=== PATIENT | female | born 1955 | race Caucasian/White ===

== ENCOUNTER → 2020-12-31 07:21 | Outpatient (REF) | payer MEDICARE, OTHER, SELFPAY ==
--- NOTE | 2020-12-31 07:29 | CA_ITS ---
Transthoracic Echocardiogram Patient (Last, First, Middle): Essence Henning, Gender: Female Date of : 1955 Age: 65 Procedure Date: 12/31/2020 Procedure Type: Transthoracic Echocardiogram Location: OP Height: 165.1 cm Weight: 65.77 kg BSA: 1.73 m2 Heart Rate: bpm BP: 130 / 80 mmHg Shredding Machine Operator: KYLAH Referring MD: Rhys Ventura MD Symptoms: Ebstein anomaly, myxomatous mitral valve, pfo Study Quality: Good ECG Rhythm: Sinus Conclusions: - The left ventricular systolic function is normal. The calculated ejection fraction is 62% by biplane method. - There is mild tricuspid valve regurgitation. - Contrast study for right to left shunting is severely positive. (rest and valsalva). Findings Left Ventricle Normal left ventricular cavity size. There is normal left ventricular wall thickness. The left ventricular systolic function is normal. The calculated ejection fraction is 62% by biplane method. There is no evidence of regional wall motion abnormalities. Diastolic function is normal for age. Right Ventricle Normal right ventricular cavity size and systolic function. Atria Both atria are normal in size. There is a mobile atrial septum noted. Contrast study for right to left shunting is severely positive. (rest and valsalva). Aortic Valve There is a normal trileaflet aortic valve. There is no aortic valve stenosis. There is no aortic valve regurgitation. Mitral Valve There is mild anterior mitral leaflet thickening. There is trace mitral valve regurgitation. There is no mitral valve stenosis. Pulmonic Valve The pulmonic valve was not well visualized. Tricuspid Valve There is mild tricuspid valve regurgitation. The pulmonary artery systolic pressure is normal. Mild thickening of tricuspid leaflets. Great Vessels The aortic annulus, sinuses of valsalva, and asc aorta are normal in size. Venous The inferior vena cava is normal in size and collapses greater than 50% with inspiration. Pericardium/Pleural There is no evidence of pericardial effusion. Prior Study Comparison No significant change compared to prior study dated: 12/25/2018. Measurements 2D Linear Measurements IVSd: 0.81 0.6-0.9/0.6-1.0 cm LVIDd: 4.19 3.9-5.3/4.2-5.9 cm LVIDd Index: 2.42 2.4-3.2/2.2-3.1 cm/m2 LVIDs: 3.01 2.0-3.6 cm LVPWd: 0.77 0.7-1.1 cm Ao Root: 2.80 2.1-3.5 cm LA Diam: 3.00 2.7-3.8/3.0-4.0 cm LAIDs Index: 1.73 1.5-2.3 cm/m2 LV Mass: 123.28 67-162/88-224 g LV Mass Index: 71.26 43-95/49-115 g/m2 LVOT Diam: 2.10 3.0+(-)1.3 cm 2D Systolic Function EF 4C: 62.70 >55% EF 2C: 63.30 >55% EF BiP: 61.60 >55% Mitral Valve MV Pk E: 0.73 MV PK A: 1.02 MV Decel Time: 219.00 E/A: 0.70 E'Lateral: 8.38 E'Medial: 6.20 E/E' Med: 11.70 E/E' Lat: 8.70 PHT: 64.00 MVA PHT: 3.44 Decel Thayer: 3.32 Aortic Valve AoV Pk Dereck: 1.33 AoV Mn Dereck: 0.90 AoV VTI: 0.29 AoV Pk Grad: 7.00 Aov Mn Grad: 4.00 VIKI Cont.VTI: 2.56 LVOT LVOT Pk Dereck: 0.95 LVOT Mn Dereck: 0.63 LVOT VTI: 0.21 LVOT Pk Grad: 4.00 LVOT Mn Grad: 2.00 LVOT Diam: 2.10 LVOT Area: 3.46 Diastolic Function MV Pk E: 0.73 MV Pk A: 1.02 E/A: 0.70 E'Medial: 6.20 E/E' Med: 11.70 E' Laterial: 8.38 E/E' Lat: 8.70 Right Ventricle TAPSE (mm): 2.44 TVS' Dereck: 13.60 Tricuspid Valve TR Pk Dereck: 2.58 TR Pk Grad: 27.00 RA Press: 3.00 RVSP: 30.00 Great Vessels Aorta Ao Root-2D: 2.80 2.0-3.7 cm Ao Asc: 3.00 2.1-3.4 cm Ao Arch: 3.20 Updated in Other Vendor System with Status of Final Rhys Ventura MD electronically signed on 01/02/2021 2:55:40 PM with status of Final
== END ==
LOC: HO.CARD 07:21
PROVIDERS: PCP Family Medicine; Visit Provider Internal Medicine
DX: Q22.5 Ebstein's anomaly (principal); I34.1 Nonrheumatic mitral (valve) prolapse; Q22.1 Congenital pulmonary valve stenosis
CPT/HCPCS: 93306

== ENCOUNTER → 2021-01-07 12:11 | Outpatient (BNVA) | payer MEDICARE, OTHER, SELFPAY | PROVIDERS: PCP Family Medicine; Visit Provider Internal Medicine | DX: I36.1 Nonrheumatic tricuspid (valve) insufficiency (principal); Q21.1 Atrial septal defect; G47.33 Obstructive sleep apnea (adult) (pediatric); Z99.89 Dependence on other enabling machines and devices | CPT/HCPCS: 93005; 99212 ==

== ENCOUNTER 2024-01-08 13:59 | Outpatient (AMB) | payer MEDICARE, OTHER, SELFPAY ==
--- NOTE | 2024-01-08 14:32 | MHC.OFFVIS ---
Vital Signs 01/08/24 14:33 Height 5 ft 5 in Weight 149 lb 14.629 oz BMI 24.9 BP 120/62 Blood Pressure Location Lt brachial Position Sitting Pulse 80 Pulse Source Monitor Intake Visit Reasons: 3 years f/u w/ekg dx: pfo Allergies No Known Allergies [No Known Allergies*] Allergy (Verified 01/07/21 12:34) Medication List - Last Reconciled 01/08/24 by Rhys Ventura MD aspirin (Adult Aspirin Regimen) 81 mg PO DAILY calcium carbonate (Calcium 600) 600 mg PO DAILY escitalopram oxalate 5 mg PO DAILY levothyroxine 50 mcg PO DAILY multivitamin 1 tab PO DAILY vitamin B complex (B Complex-Vitamin B12 tablet) 1 tab PO DAILY vitamins A,C,B-bqij-hdkvnb 4,296 mcg-226 mg-90 mg (PreserVision AREDS) 1 cap PO BID HPI Comments Details: Essence returns for follow-up. In the past, she underwent an echocardiogram at [facility] for evaluation of dizziness. That had reported Ebstein's anomaly and tricuspid regurgitation. Since that time, no further episodes. Previously, she had reported episodes of chest pressure, but only at nighttime when lying down. She is again complaining of the same thing for the last few weeks. However, during the daytime when she is active she is not noticing that. Hence not clear. [facility] Surgical History (Updated 01/07/21 @ 12:45 by EDUARDO Bundy) History of partial thyroidectomy Family History (Updated 01/07/21 @ 12:46 by EDUARDO Bundy) Father No problems noted. Mother Dementia Arthritis Social History (Updated 01/07/21 @ 12:44 by EDUARDO Bundy) Alcohol intake: current Alcohol intake frequency: holidays/special occasions only Patient Tobacco Use Status: Never used Tobacco Review of Systems Const Denies weakness ENT Denies dizziness Card Reports chest pain, Denies chest pain with activity, Denies syncope, Denies rapid heart rate, Denies pedal edema, Denies edema, Denies leg edema, Denies lightheadedness, Denies palpitations, Denies dyspnea, Denies dyspnea on exertion and Denies orthopnea Resp Denies cough, Denies dyspnea and Denies dyspnea on exertion GI Denies hematochezia and Denies change in stool character Musc Denies abnormal gait, Denies muscle cramps, Denies muscle weakness, Denies numbness, Denies radiating pain into limb and Denies tingling Neuro Denies abnormal gait, Denies dizziness, Denies syncope, Denies numbness, Denies tingling and Denies weakness Endo Denies palpitations Physical Exam Vital Signs: Last Vital Signs Pulse 80 01/08/24 14:33 BP 120/62 01/08/24 14:33 BMI result Body Mass Index 24.9 Const General: comfortable and no acute distress Orientation/consciousness: patient oriented x3 HEENT Other: Unremarkable Head: Yes normal to inspection Neck Neck: Yes normal visual inspection Chest Chest palpation & inspection: normal inspection of the chest Resp Auscultation: clear to auscultation bilaterally Cardio Palpation: normal PMI Heart sounds: S1 normal heart sound present, S2 normal heart sound present, no gallops, no murmurs and no rubs GI Palpation (GI): Soft to palpation Back/Spine/Pelvis Other: unremarkable Skin General skin exam: no rashes or lesions noted Neuro General: patient oriented x3 Extrem General: Yes normal to inspection Psych Mental Status: mental status grossly normal Office Procedures EKG Details: EKG with underlying sinus rhythm at 80/Min; no significant ST-T changes and otherwise unremarkable[place]. [address]-[id number], Complete Assessment & Plan Assessment & Plan (1) Nonrheumatic tricuspid (valve) insufficiency: Code(s): I36.1 - Nonrheumatic tricuspid (valve) insufficiency Category: Medical (2) PFO (patent foramen ovale): Code(s): Q21.1 - Atrial septal defect Category: Medical (3) MIGUEL on CPAP: Code(s): G47.33 - Obstructive sleep apnea (adult) (pediatric); Z99.89 - Dependence on other enabling machines and devices Category: Medical (4) Precordial chest pain: Code(s): R07.2 - Precordial pain Category: Medical Plan Initial echocardiogram had reported apical displacement of the septal leaflet of tricuspid leaflet, consistent with mild Ebstein's anomaly. However, repeat studies are not to convincing for the same. There is only mild tricuspid regurgitation in the last study. She does have a mobile atrial septum and evidence of patent foramen ovale. She remains on low-dose aspirin for that. In the past, exercise stress test was unremarkable. As she is again complaining of the chest pressure on lying down, we can redo stress testing. However, suspect it may not be cardiac. Orders: Orders CA echo transthoracic complete Today I36.1 - Nonrheumatic tricuspid (valve) insufficiency, R07.2 - Precordial pain CA stress test Today R07.2 - Precordial pain NM cardiolite stress test Today R07.2 - Precordial pain Coding Level of Care Code Est Pt Level 4 (72030) Diagnoses Nonrheumatic tricuspid (valve) insufficiency I36.1 PFO (patent foramen ovale) Q21.1 MIGUEL on CPAP G47.33; Z99.89 Precordial chest pain R07.2 CPT Codes EKG - CPT: 96572-[id number], Complete ([id number])
[2024-01-08 14:33] VITALS: BP 120/62; PULSE 80; BMI 24.9
== END 2024-01-08 15:00 | disposition home or self-care (01) ==
PROVIDERS: PCP Family Medicine; Visit Provider Internal Medicine
DX: I36.1 Nonrheumatic tricuspid (valve) insufficiency (principal); Q21.10 Atrial septal defect, unspecified; G47.33 Obstructive sleep apnea (adult) (pediatric); Z99.89 Dependence on other enabling machines and devices; R07.2 Precordial pain
CPT/HCPCS: 93010; 99214

== ENCOUNTER → 2024-01-08 13:59 | Outpatient (BNVA) | payer MEDICARE, OTHER, SELFPAY | PROVIDERS: PCP Family Medicine; Visit Provider Internal Medicine | DX: R07.2 Precordial pain (principal); I36.1 Nonrheumatic tricuspid (valve) insufficiency; Q21.12 Patent foramen ovale; G47.33 Obstructive sleep apnea (adult) (pediatric); Z99.89 Dependence on other enabling machines and devices | CPT/HCPCS: 93005; 99212 ==

== ENCOUNTER → 2024-01-30 12:33 | Outpatient (REF) | payer MEDICARE, OTHER, SELFPAY ==
--- NOTE | 2024-01-30 12:36 | CA_ITS ---
Transthoracic Echocardiogram Patient (Last, First, Middle): Essence Henning, Gender: Female Date of : 1955 Age: 68 Procedure Date: 01/30/2024 Procedure Type: Transthoracic Echocardiogram Location: OP Height: 165.1 cm Weight: 67.59 kg BSA: 1.75 m2 Heart Rate: 81 bpm BP: 122 / 60 mmHg Production Specialist: BLAIRE Referring MD: Rhys Ventura MD Nougat Candy Maker Helper: David Holm MD Symptoms: R07.2 - Precordial pain Study Quality: Adequate ECG Rhythm: Sinus Conclusions: - 1. Normal LV ejection fraction 55-60% with impaired relaxation filling pattern 2. Normal cardiac valvular Doppler 3. Normal RV systolic pressure 4. Trivial pericardial effusion Findings Left Ventricle Normal left ventricular size, thickness, and systolic function. The visually estimated ejection fraction is between 55-60%. Spectral Doppler is indicative of an impaired relaxation filling pattern. E/E prime ratio is between 8 and 15 consistent with indeterminate filling pressures. Right Ventricle Normal right ventricular cavity size and systolic function. Atria Both atria are normal in size. There is no evidence of interatrial shunt. Aortic Valve Normal aortic valve structure and function. There is no aortic valve stenosis. There is no aortic valve regurgitation. Mitral Valve Normal mitral valve structure and function. There is trace mitral valve regurgitation. There is no mitral valve stenosis. Pulmonic Valve The pulmonic valve is likely normal. Tricuspid Valve Normal tricuspid valve structure. There is mild tricuspid valve regurgitation. The right ventricular systolic pressure is normal. The right ventricular systolic pressure is 23 mmHg. Normal right atrial pressure. There is no evidence of pulmonary hypertension. Great Vessels All visible segments of the aorta are normal in size. The pulmonary artery was not well visualized. There is no dilatation of the ascending aorta measuring 3.00 cm. Venous The inferior vena cava is normal in size and collapses greater than 50% with inspiration. Pericardium/Pleural There is a trivial circumferential pericardial effusion. Measurements 2D Linear Measurements IVSd: 0.88 0.6-0.9/0.6-1.0 cm LVIDd: 3.98 3.9-5.3/4.2-5.9 cm LVIDd Index: 2.27 2.4-3.2/2.2-3.1 cm/m2 LVIDs: 2.75 2.0-3.6 cm LVPWd: 0.72 0.7-1.1 cm LA Diam: 3.50 2.7-3.8/3.0-4.0 cm LAIDs Index: 2.00 1.5-2.3 cm/m2 LV Mass: 115.51 67-162/88-224 g LV Mass Index: 66.01 43-95/49-115 g/m2 LVOT Diam: 2.20 3.0+(-)1.3 cm 2D Systolic Function EF 4C: 64.90 >55% EF 2C: 53.60 >55% EF BiP: 59.10 >55% Mitral Valve MV VTI: 0.19 MV Pk Dereck: 1.01 MV Mn Dereck: 0.68 MV Pk Grad: 4.00 MV Mn Grad: 2.00 MV Pk E: 0.62 MV PK A: 1.03 MV Decel Time: 228.00 E/A: 0.60 E'Lateral: 4.35 E'Medial: 4.03 E/E' Med: 15.50 E/E' Lat: 14.30 PHT: 67.00 MVA PHT: 3.28 MVA Continuity: 4.22 Decel Harrison: 2.74 Aortic Valve AoV Pk Dereck: 1.29 AoV Pk Grad: 7.00 VIKI: 3.36 LVOT LVOT Pk Dereck: 1.14 LVOT Mn Dereck: 0.80 LVOT VTI: 0.21 LVOT Pk Grad: 5.00 LVOT Mn Grad: 3.00 LVOT Diam: 2.20 LVOT Area: 3.80 Diastolic Function MV Pk E: 0.62 MV Pk A: 1.03 E/A: 0.60 E'Medial: 4.03 E/E' Med: 15.50 E' Laterial: 4.35 E/E' Lat: 14.30 Right Ventricle TAPSE (mm): 24.30 TVS' Dereck: 15.90 Tricuspid Valve TR Pk Dereck: 2.22 TR Pk Grad: 20.00 RA Press: 3.00 RVSP: 23.00 Great Vessels Aorta Sinus of Valsalva: 2.80 2.0-3.5 cm Ao Asc: 3.00 2.1-3.4 cm Ao Arch: 2.90 Pulmonary Valve PV Pk Dereck: 1.05 Peak PV Grad: 4.00 Shunting QP:QS: 0.90 Updated in Other Vendor System with Status of Final David Holm MD electronically signed on 01/31/2024 2:55:14 PM with status of Final
== END ==
LOC: HO.CARD 12:33
PROVIDERS: PCP Family Medicine; Visit Provider Internal Medicine
DX: R07.2 Precordial pain (principal); I36.1 Nonrheumatic tricuspid (valve) insufficiency
CPT/HCPCS: 93306

== ENCOUNTER → 2024-01-30 12:36 | Outpatient (BNV) | payer MEDICARE, OTHER, SELFPAY | PROVIDERS: PCP Family Medicine; Visit Provider Internal Medicine Cardiovascular Disease | DX: I36.1 Nonrheumatic tricuspid (valve) insufficiency (principal) | CPT/HCPCS: 93306 ==

== ENCOUNTER → 2024-03-12 08:30 | Outpatient (REF) | payer MEDICARE, OTHER, SELFPAY ==
--- NOTE | ~2024-03-12 | NM_ITS ---
EXERCISE MYOCARDIAL PERFUSION STUDY INDICATION: Chest pain TECHNIQUE: The patient was brought in for an exercise perfusion study on 03/12/2024. Patient performed exercise as per Rafita protocol and was injected 25 mCi of sestamibi once target heart rate was achieved. Images were obtained using the SPECT gamma camera interlaced with the gating device. Images were obtained in supine position. Resting perfusion study was performed on 03/13/2024. Patient was administered 25 mCi of sestamibi intravenously at rest. Images were then obtained in supine position. Total DLP 79 mGy-cm. Images were processed with the software and compared side to side in short axis, horizontal long axis and vertical long axis views. FINDINGS: Raw aquisition reviewed. The stress perfusion study showed no significant perfusion abnormality. Both uncorrected as well as CT attenuation corrected images were reviewed. The gated study shows normal LV systolic function with calculated LVEF of 69%. LV cavity is normal in size. The gated study shows normal wall thickening and contraction of segments. Resting study shows no significant perfusion abnormality. Gating at rest reveals normal wall motion with ejection fraction at 64%. The findings are consistent with no clear reversible or fixed perfusion abnormality. NM/NM cardiolite stress test IMPRESSION: 1. Myocardial perfusion imaging study shows normal myocardial perfusion. 2. Gated LVEF is 69% during stress and 64% during rest. 3. Transient ischemic dilatation not present. EKG component of the test reported separately. Electronically signed by: Rhys Ventura MD 03/13/2024 12:03 PM [facility]
--- NOTE | 2024-03-12 08:32 | CA_ITS ---
Acquisition Time: 2024-03-12 08:47:48 Total Exercise Time: 00:07:00 Test Indications: CP DIZZINESS Medications: ASA LEVOTHYROID ESCITALOPRAM Protocol: EMI Max HR: 153 BPM 102% of Pred: 150 BPM Max BP: 192/078 mmHG Max Work Load: 8.5 METS Exercise stress test with exercise 7 min of Emi protocol, achieving 102% MPHR, with mild sob, no chest discomfort, with isolated PACs, atrial cuplets, with normotensive response to exercise, without EKG changes meeting criteria for ischemia. Nuclear images pending. Test reviewed with Dr Holm. Referred By: Rhys Ventura Overread By: ELIZABETH HELLER
== END ==
LOC: HO.CARD 08:30
PROVIDERS: PCP Family Medicine; Visit Provider Internal Medicine
DX: R07.2 Precordial pain (principal)
CPT/HCPCS: 78452; 93017; A9500

== ENCOUNTER → 2024-03-12 08:32 | Outpatient (BNV) | payer MEDICARE, OTHER, SELFPAY | PROVIDERS: PCP Family Medicine; Visit Provider Nurse Practitioner Family | DX: I49.1 Atrial premature depolarization (principal) | CPT/HCPCS: 78452; 93016; 93018 ==

== ENCOUNTER 2024-05-01 12:10 | Outpatient (AMB) | payer MEDICARE, OTHER, SELFPAY ==
--- OUTSIDE RECORDS SUMMARY | 2024-05-01 12:12 | XMS_ITS | Patient Health Record ---
Author Organization [facility] Address [address] [place] [address] Care Team Providers Care Perch Mender Name Role Phone Kyle Mo MD Primary Care Provider Unava Jono Luo Unavailable [phone] Reason For Referral No Information Medications Medication SIG (Take, Route, Frequency, Duration) Notes Start Date End Date Status Calcium + D Active Escitalopram Oxalate 5 MG Orally Active Vitamin B 12 Active Zolpidem Tartrate 5 MG 1 tablet at bedti me Orally Once a day Active Melatonin Active Multivitamin Active Levothyroxine Sodium 50 MCG 1 tablet on an empty stomach in the morning Orally Once a day Active Social History Tobacco Use: Social History Observation Description Date Details (start date - stop date) Former Smoker NA - NA Tobacco Use/Smoking Question Answer Notes Are you a: former smoker When did you stop smoking? smoked for 3 years Additional Findings: Tobacco User Light cigarett e smoker ((1-9 cigs/day) Alcohol Screen Question Answer Notes Did you have a drink contain ing alcohol in the past year? Yes How often did you have a dri nk containing alcohol in the past year? 2 to 4 times a month (2 points) How many drinks did you have on a typical day when you were drinking in the past year? 1 or 2 drinks (0 point) Points 2 Interpretation Negative Tobacco use other than smoking: Question Answer Notes Are you an other tobacco user? No Problems Problem Type SNOMED Code ICD Code Onset Dates Problem Status W/U Status Risk Notes Problem Acquired hammer toe of right foot (9765454953365 105) Other hammer toe(s) (acquired), right foot (M20.41) Active confirmed Problem Acquired hammer toe of left foot (6696283555996 103) Other hammer toe(s) (acquired), left foot (M20.42) Active confirmed Plan Of Treatment Pending Test Test Name Order Date X ray : Foot, left 2V 10/31/2017 X ray : Foot, right 2V 10/31/2017 X ray : Foot, left 3V 12/06/2016 28920 - Tenotomy, open flexor 12/05/2017 Insurance Providers Payer Name Payer Address Payer Phone Subscriber Number Group Number Insured Name Patient Relationship to Insured Coverage Start Date Coverage End Date [facility] Pay[facility] [id number] [id number] GRICEL Reyna [phone] [id number] Dandy Henning Spouse - patient is the spouse of the insured Medical (General) History Medical History History ICD Code Headaches Thyroid disorder Measles Chicken pox Surgical History Surgery Date(Month/Year) thyroidectomy, subtotal 06/12/2012
--- NOTE | 2024-05-01 12:30 | A.OFFVIS_ITS ---
Vital Signs 05/01/24 12:31 Height 5 ft 5 in Weight 147 lb 11.355 oz BMI 24.6 BP 120/70 Blood Pressure Location Lt brachial Position Sitting Pulse 78 Pulse Source Pulse Oximeter Intake Visit Reasons: F/U s/p testing Allergies No Known Allergies [No Known Allergies*] Allergy (Verified 01/07/21 12:34) Medication List - Last Reconciled 05/01/24 by Rhys Ventura MD alendronate 70 mg PO QWEEK aspirin (Adult Aspirin Regimen) 81 mg PO DAILY calcium carbonate (Calcium 600) 600 mg PO DAILY levothyroxine 50 mcg PO DAILY multivitamin 1 tab PO DAILY vitamin B complex (B Complex-Vitamin B12 tablet) 1 tab PO DAILY vitamins A,C,F-zwev-vytuyk 4,296 mcg-226 mg-90 mg (PreserVision AREDS) 1 cap PO BID HPI Comments Details: Essence returns for follow-up. In the past, she underwent an echocardiogram at [facility] for evaluation of dizziness. That had reported Ebstein's anomaly and tricuspid regurgitation. However, nothing clearly evident on subsequent echocardiograms. During a prior visit, she had described some nighttime chest pressure but no other symptoms. She has undergone an echocardiogram/stress test and follows up here. No new concerns. Feels good. [facility] Surgical History (Updated 01/07/21 @ 12:45 by EDUARDO Bundy) History of partial thyroidectomy Family History (Updated 01/07/21 @ 12:46 by EDUARDO Bundy) Father No problems noted. Mother Dementia Arthritis Social History (Updated 01/07/21 @ 12:44 by EDUARDO Bundy) Alcohol intake: current Alcohol intake frequency: holidays/special occasions only Patient Tobacco Use Status: Never used Tobacco Review of Systems Const Denies weakness ENT Denies dizziness Card Denies chest pain, Denies chest pain with activity, Denies syncope, Denies rapid heart rate, Denies pedal edema, Denies edema, Denies leg edema, Denies lightheadedness, Denies palpitations, Denies dyspnea, Denies dyspnea on exertion and Denies orthopnea Resp Denies cough, Denies dyspnea and Denies dyspnea on exertion GI Denies hematochezia and Denies change in stool character Musc Denies abnormal gait, Denies muscle cramps, Denies muscle weakness, Denies numbness, Denies radiating pain into limb and Denies tingling Neuro Denies abnormal gait, Denies dizziness, Denies syncope, Denies numbness, Denies tingling and Denies weakness Endo Denies palpitations Physical Exam Vital Signs: Last Vital Signs Pulse 78 05/01/24 12:31 BP 120/70 05/01/24 12:31 BMI result Body Mass Index 24.6 Const General: comfortable and no acute distress Orientation/consciousness: patient oriented x3 HEENT Other: Unremarkable Head: Yes normal to inspection Neck Neck: Yes normal visual inspection Chest Chest palpation & inspection: normal inspection of the chest Resp Auscultation: clear to auscultation bilaterally Cardio Palpation: normal PMI Heart sounds: S1 normal heart sound present, S2 normal heart sound present, no gallops, no murmurs and no rubs GI Palpation (GI): Soft to palpation Back/Spine/Pelvis Other: unremarkable Skin General skin exam: no rashes or lesions noted Neuro General: patient oriented x3 Extrem General: Yes normal to inspection Psych Mental Status: mental status grossly normal Assessment & Plan Assessment & Plan (1) Nonrheumatic tricuspid (valve) insufficiency: Code(s): I36.1 - Nonrheumatic tricuspid (valve) insufficiency Category: Medical (2) PFO (patent foramen ovale): Code(s): Q21.1 - Atrial septal defect Category: Medical (3) MIGUEL on CPAP: Code(s): G47.33 - Obstructive sleep apnea (adult) (pediatric); Z99.89 - Dependence on other enabling machines and devices Category: Medical (4) Precordial chest pain: Code(s): R07.2 - Precordial pain Category: Medical Plan Initial echocardiogram had reported apical displacement of the septal leaflet of tricuspid leaflet, consistent with mild Ebstein's anomaly. However, repeat studies are not convincing for the same. In the most recent study, mild tricuspid regurgitation only. Otherwise, a prior echocardiogram had also shown [id number] interatrial shunting, likely from patent foramina ovale. Mobile interatrial septum. For that reason, may remain on aspirin. In the stress test, she was able to exercise for 8.5 METS. Reached target heart rate. Unremarkable perfusion imaging. Overall, stable cardiac status. She will keep us posted with any new concerns. Coding Level of Care Code Est Pt Level 3 (82253) Diagnoses Nonrheumatic tricuspid (valve) insufficiency I36.1 PFO (patent foramen ovale) Q21.1 MIGUEL on CPAP G47.33; Z99.89 Precordial chest pain R07.2
[2024-05-01 12:31] VITALS: BP 120/70; PULSE 78; BMI 24.6
== END 2024-05-01 12:49 | disposition home or self-care (01) ==
PROVIDERS: PCP Family Medicine; Visit Provider Internal Medicine
DX: I36.1 Nonrheumatic tricuspid (valve) insufficiency (principal); Q21.10 Atrial septal defect, unspecified; G47.33 Obstructive sleep apnea (adult) (pediatric); Z99.89 Dependence on other enabling machines and devices; R07.2 Precordial pain
CPT/HCPCS: 99213

== ENCOUNTER → 2024-05-01 12:10 | Outpatient (BNVA) | payer MEDICARE, OTHER, SELFPAY | PROVIDERS: PCP Family Medicine; Visit Provider Internal Medicine | DX: I36.1 Nonrheumatic tricuspid (valve) insufficiency (principal); R07.2 Precordial pain; Q21.12 Patent foramen ovale; G47.33 Obstructive sleep apnea (adult) (pediatric); Z99.89 Dependence on other enabling machines and devices | CPT/HCPCS: 99212 ==